=== PATIENT | female | born 1990 | race Caucasian/White ===

== ENCOUNTER 2022-11-14 21:16 | Emergency (ER) | payer OTHER ==
[2022-11-14 21:25] VITALS: BMI 42.9
[2022-11-14 21:26] VITALS: RESP 17
[2022-11-14] MEDS ORDERED: ACETAMINOPHEN 500 MG TABLET (FP) PO ONE (22:18)
[2022-11-14] MEDS ORDERED: ACETAMINOPHEN 500 MG TABLET (FP) ONE (22:26)
[2022-11-14 23:01] VITALS: BP 108/74; PULSE 114; TEMP 99.6
== END 2022-11-14 23:11 | disposition home or self-care (01) ==
LOC: JER 21:16
DX: R50.9 Fever, unspecified (principal); M79.10 Myalgia, unspecified site
CPT/HCPCS: 0241U-QW; 71046-TC-FY; 93005; 93010; 99285-25